=== PATIENT | male | born 1960 | race Caucasian/White ===

== ENCOUNTER → 2021-09-21 | Outpatient (CLI) | payer MEDICARE | LOC: HEART 5 10:35 | DX: R06.02 Shortness of breath (principal) | CPT/HCPCS: 94060; 94729 ==

== ENCOUNTER → 2021-09-21 | Outpatient (CLI) | payer MEDICARE | LOC: RAD 11:25 | DX: R91.8 Other nonspecific abnormal finding of lung field (principal) | CPT/HCPCS: 71046 ==

== ENCOUNTER → 2021-10-23 | Day surgery (SDC) | payer MEDICARE ==
[~2021-10-23] MED LIST: AMLODIPINE BESY10 MG PO; ASPIRIN 325MG325 MG PO; B-121000 MCG PO; ELAVIL 50 MG TA50 MG PO; FENOFIBRATE145 MG PO; LASIX40 MG PO; LEVEMIR100 UNIT/1 SQ; LIPITOR40 MG PO; MELOXICAM7.5 MG PO; METFORMIN HCL500 MG PO; NEURONTIN 100100 MG PO; NITROSTAT0.4 MG SL; PROAIR HFA8.5 GM INH; STIOLTO RESPIMAT4 GM INH; TOPROL XL100 MG PO; VITAMIN D31250 MCG PO; ZESTRIL40 MG PO
== END | disposition home or self-care (01) ==
LOC: OR 10:55
DX: C34.12 Malignant neoplasm of upper lobe, left bronchus or lung (principal); I10 Essential (primary) hypertension; E11.9 Type 2 diabetes mellitus without complications; I25.10 Atherosclerotic heart disease of native coronary artery without angina pectoris; J44.9 Chronic obstructive pulmonary disease, unspecified; M19.90 Unspecified osteoarthritis, unspecified site; Z95.5 Presence of coronary angioplasty implant and graft; Z87.891 Personal history of nicotine dependence; Z79.4 Long term (current) use of insulin; Z79.82 Long term (current) use of aspirin; Z79.899 Other long term (current) drug therapy; Z88.8 Allergy status to other drugs, medicaments and biological substances; Z91.041 Radiographic dye allergy status
CPT/HCPCS: 82962; J0171; J2704